=== PATIENT | female | born 1995 | race Caucasian/White ===

== ENCOUNTER 2016-07-24 17:49 | Emergency (ER) | payer OTHER ==
[2016-07-24 19:03] VITALS: BP 145/94
[2016-07-24] MEDS ORDERED: Ondansetron ODT TAB* 4 MG PO ONE (21:38)
--- NOTE | 2016-07-24 22:29 | UC ---
Catarina Ellison Alok, scribed for Marli Terry MD on 07/24/16 at 2108 . Abdominal Pain Female HPI - HPI Summary HPI Summary: 20F presents to [facility] for umbilical abd cramping on and off since today as well as vomiting roughly once a day for the last few months. Pt also notes diarrhea. There is no blood in the diarrhea. Pt has not vomited today. Pt denies vaginal discharge. Her LMP was 1 week ago. Pt takes BCP. Pt takes trintellix ( Vortioxetine) for depression for the last few months. Pt states her vomiting began only after she began her new anti-depressant medication. Pt denies SI/HI when asked directly in response to nurse's triage questions. Pt lives with her mother. Mother states she feels safe having the patient come home with her and does not feel the pt is suicidal either. Pt also admits to marijuana smoking daily to calm her nerves and feels it helps her. Pt is seeing a wall man and is trying to diet. - History of Current Complaint Chief Complaint: UCAbdominalPain Stated Complaint: ABD PAIN WITH CRAMPING Time Seen by Provider: 07/24/16 20:24 Hx Obtained From: Patient, Family/Ton Container Filler - mother Hx Last Menstrual Period: 07/17/16 ?: No Onset/Duration: Lasting Hours - abd pain, Lasting Weeks - vomiting, Worse Since - today Timing: Constant Severity Initially: Moderate Severity Currently: Moderate Pain Intensity: 3 Pain Scale Used: 0-10 Numeric Location: Discrete At: RLQ, Discrete At: LLQ Radiates: No Character: Cramping Aggravating Factor(s): Nothing Alleviating Factor(s): Nothing Associated Signs and Symptoms: Positive: Nausea, Vomiting, Diarrhea. Negative: Fever, Blood in Stool, Urinary Symptoms, Vaginal Bleeding, Vaginal Discharge Allergies/Adverse Reactions: Allergies Allergy/AdvReac Type Severity Reaction Status Date / Time No Known Allergies Allergy Verified 07/24/16 18:53 Home Medications: Home Medications Cyanocobalamin TAB* [Vitamin B12 TAB*] 1 tab PO DAILY 07/24/16 [History Confirmed 07/24/16] Norgestimate-Ethinyl Estradiol [Tri-Linyah 0.18/0.215/0.25 mg-35 Mcg] 1 tab PO DAILY 07/24/16 [History Confirmed 07/24/16] Vortioxetine HBr [Trintellix] 20 mg PO DAILY 07/24/16 [History Confirmed ] PMH/Surg Hx/FS Hx/Imm Hx Previously Healthy: No Psychological History: Depression - Surgical History Surgical History: None - Family History Known Family History: Positive: Hypertension - Social History Occupation: Student Lives: With Family Alcohol Use: Rare Substance Use Type: Marijuana Substance Use Comment - Amount & Last Used: daily Smoking Status (MU): Never Smoked Tobacco Review of Systems Constitutional: Negative Eyes: Negative ENT: Negative Respiratory: Negative Gastrointestinal: Abdominal Pain, Vomiting, Diarrhea Musculoskeletal: Negative Neurological: Negative Psychological: Negative All Other Systems Reviewed And Are Negative: Yes Physical Exam Triage Information Reviewed: Yes Appearance: Well-Appearing, Well-Nourished, Pain Distress Vital Signs: Initial Vital Signs Temp 99.2 F 07/24/16 18:55 Pulse 102 07/24/16 18:55 Resp 16 07/24/16 18:55 BP 145/94 07/24/16 18:55 Pulse Ox 98 07/24/16 18:55 Vital Signs Reviewed: Yes Eyes: Positive: Conjunctiva Clear ENT Exam: Normal Neck: Positive: Supple Respiratory: Positive: Lungs clear, Normal breath sounds, No respiratory distress Cardiovascular: Positive: RRR, No Murmur, Pulses Normal, Brisk Capillary Refill Abdomen Description: Positive: No Organomegaly, Soft, Other: - mild diffuse tenderness. Negative: Bruit, CVA Tenderness (R), CVA Tenderness (L), Distended , Guarding, Hernia @, Hepatomegaly, McBurney's Point Tenderness, Peritoneal Signs, Pulsatile Mass, Splenomegaly Bowel Sounds: Positive: Present Musculoskeletal: Positive: Strength Intact, ROM Intact Neurological: Positive: Alert, Muscle Tone Normal Psychological Exam: Normal Skin Exam: Normal Diagnostics - Laboratory Diagnostic Studies Completed/Ordered: UA Test # 1127- Color: Dark Yellow, Clarity: Cloudy, GLU: Negative, SERA: 1+, KET: 2+, S.025, BLO: Trace-Intact, pH: 6.5, PRO: 1+, URO: 1.0 E.U./dL, NIT: Negative, PARK: Negative, hCG: Negative. Re-Evaluation - Re-Evaluation First Eval Re-Evaluation Time: 21:38 Change: Worse Comment: Pt vomited yellow bile Second Eval Re-Evaluation Time: 22:15 - improved after zofran Change: Improved Abd Pain Female Course/Dx - Course Course Of Treatment: Pt medications reviewed at visit. High BP noted. Pt presents with vomiting and abd pain. Given zofran with relief. Not a surgical abdomen. UA Test # 1127- Color: Dark Yellow, Clarity: Cloudy, GLU: Negative, SERA: 1+, KET: 2+, S.025, BLO: Trace-Intact, pH: 6.5, PRO: 1+, URO: 1.0 E.U./ dL, NIT: Negative, PARK: Negative, hCG: Negative. - Differential Dx/Diagnosis Differential Diagnosis: Appendicitis, Diverticulitis, Gall Bladder Disease, Hepatitis, Irritable Bowel Syndrome, Pancreatitis, Peptic Ulcer Disease, Urinary Tract Infection Provider Diagnoses: Vomiting. Abdominal pain. Elevated BP without dx of HTN. Discharge - Discharge Plan Condition: Stable Disposition: HOME Prescriptions: Ondansetron ODT TAB* [Zofran 4 MG Odt TAB*] 4 mg PO Q8H PRN #12 tab.odt PRN Reason: Nausea Ranitidine TAB (NF) [Zantac TAB (NF)] 300 mg PO BEDTIME #30 tab Patient Education Materials: Ranitidine (By mouth), Ondansetron (By mouth), Acute Nausea and Vomiting (ED), Abdominal Pain (ED) Referrals: Tatyana June, PLUG MAKER [Primary Care Provider] - 2 Days Additional Instructions: Dr. Terry discussed the differential diagnosis of your abdominal pain which includes gallstones and gallbladder disease, gastritis or beginning stages of an ulcer, GERD, gluten intolerance, medication side effects as the top diagnoses , however hepatitis, pancreatitis, irritable bowel disease any many other diseases can give vomiting and abdominal pain as well. Dr. Terry gave you one dose of ondansetron (zofran) for nausea. She also recommends that you try ranitidine (H2 teodoro) in a different category of drugs from omeprazole (which is a proton pump inhibitor). You do not have a surgical abdomen at this time. Dr. Terry recommends that you see Tatyana June and get further work up of your abdominal pain including probable gallbladder ultrasound and possible upper endoscopy. She can guide you through that work up. Your urine test showed ketones, and mild dehydration, so you need to eat and drink more. There was no sign of infection. If you have continued vomiting or worsening abdominal pain you will need to go to the emergency room. The documentation as recorded by the Catarina more Alok accurately reflects the service I personally performed and the decisions made by me, Marli Terry MD.
== END 2016-07-24 22:20 | disposition home or self-care (01) ==
LOC: UCEAST 17:49
DX: R11.10 Vomiting, unspecified (principal); R10.9 Unspecified abdominal pain; R03.0 Elevated blood-pressure reading, without diagnosis of hypertension; F32.9 Major depressive disorder, single episode, unspecified
CPT/HCPCS: 81003; 84702; 99212; A9270-GY; G0463

== ENCOUNTER 2016-07-25 23:19 | Emergency (ER) | payer OTHER ==
[2016-07-26 01:26] LABS: Hematocrit 39 % (35-47); Mean Corpuscular HGB Conc 33 g/dl (31-36); Mean Corpuscular Hemoglobin 27 pg (27-31); Mean Corpuscular Volume 82 fL (80-97); Mean Platelet Volume 9 um3 (7.4-10.4); Red Cell Distribution Width 14 % (10.5-15)
[2016-07-26 01:31] LABS: Urine Bacteria Absent (Absent); Urine Bilirubin Negative (Negative); Urine Glucose Negative (Negative); Urine Nitrite Negative (Negative)
[2016-07-26 01:41] LABS: ALT 13 U/L (7-52); AST 14 U/L (13-39); Albumin 3.8 g/dL (3.2-5.2); Alkaline Phosphatase 69 U/L (34-104); Anion Gap 6 mmol/L (2-11); Blood Urea Nitrogen 6 mg/dL (6-24); CO2 Carbon Dioxide 27 mmol/L (22-32); Calcium 9.1 mg/dL (8.6-10.3); Chloride 101 mmol/L (101-111); EGFR African American 124.3 (>60); EGFR Non-African American 96.6 (>60); Globulin 3.2 g/dL (2-4); Glucose 111 mg/dL (70-100); Lipase 15 U/L (11.0-82.0); Potassium 3.5 mmol/L (3.5-5.0); Sodium 134 mmol/L (133-145)
--- NOTE | 2016-07-26 02:05 | ED ---
David Ellison Rebecca, scribed for Tang Joseph on 07/25/16 at 2350 . HPI Febrile Illness - HPI Summary HPI Summary: Pt is a 20 y/o F who presents to ED c/o febrile illness. Fever started suddenly today and was advised by Urgent Care to be evaluated by the ED if her fever elevated beyond 100. Reports when taken ARMHOLE BASTER JUMPBASTING at home, her temperature was 102.5. Sx aggravated and alleviated by nothing. Additionally c/o V/D, for which she was evaluated by Urgent Care last night with a Dx of GERD. Notes intermittent suprapubic abdominal pain that is currently not present. Denies CP, SOB, sore throat. Has an appt with her PCP tomorrow. - History of Current Complaint Chief Complaint: EDFever Time Seen by Provider: 07/25/16 23:47 Hx Obtained From: Patient Onset/Duration: Started Hours Ago - Started today, Still Present Temperature: 102.5 F - ARMHOLE BASTER JUMPBASTING Current Severity: None Pain Intensity: 0 Pain Scale Used: 0-10 Numeric Aggravating Factors: Nothing Alleviating Factors: Nothing Associated Signs and Symptoms: Diarrhea, Vomiting, Other: - Intermittent abd pain (currently resolved) - Allergy/Home Medications Allergies/Adverse Reactions: Allergies Allergy/AdvReac Type Severity Reaction Status Date / Time No Known Allergies Allergy Verified 07/25/16 23:25 PMH/Surg Hx/FS Hx/Imm Hx Endocrine/Hematology History: Denies: Hx Diabetes Cardiovascular History: Denies: Hx Hypertension Psychiatric History: Reports: Hx Anxiety, Hx Depression Denies: Hx Eating Disorder, Hx of Violent Episodes Against Others Infectious Disease History: No Infectious Disease History: Denies: Traveled Outside the [place] in Last 30 Days - Family History Known Family History: Positive: Hypertension - Social History Alcohol Use: Rare Substance Use Type: Reports: Marijuana Substance Use Comment - Amount & Last Used: daily Smoking Status (MU): Never Smoked Tobacco Review of Systems Positive: Fever - 102.5 ARMHOLE BASTER JUMPBASTING, at home Negative: Sore Throat Negative: Chest Pain Negative: Shortness Of Breath Positive: Abdominal Pain - intermittent (resolved), Vomiting, Nausea All Other Systems Reviewed And Are Negative: Yes Physical Exam - Summary Physical Exam Summary: Appearance: Well appearing, no pain distress Skin: warm, dry, reflects adequate perfusion Head/face: normal Eyes: EOMI, FER ENT: normal Neck: supple, nontender Resp: CTA, breath sounds present Cardio: RRR, pulses symm Abd: nontender, soft Bowel: present Musc: normal, strength/ROM intact Neuro: normal, sensory motor intact, A&Ox3 Triage Information Reviewed: Yes Vital Signs On Initial Exam: Initial Vitals Temp Pulse Resp BP Pulse Ox 98.8 F 118 18 144/91 98 07/25/16 23:21 07/25/16 23:21 07/25/16 23:21 07/25/16 23:21 07/25/16 23:21 Vital Signs Reviewed: Yes Diagnostics - Vital Signs Vital Signs Temp Pulse Resp BP Pulse Ox 07/25/16 23:21 98.8 F 118 18 144/91 98 - Laboratory Result Diagrams: 07/26/16 01:13 07/26/16 01:13 Lab Statement: Any lab studies that have been ordered have been reviewed, and results considered in the medical decision making process. - Radiology CXR Xray Interpretation: No Acute Changes Radiology Interpretation Completed By: ED Physician Course/Dx - Course Assessment/Plan: Pt is a 20 y/o F with a CC of febrile illness, reporting she was advise [facility] last night to be evaluated by the ED if her fever went over 100, which she reports was 102.5 ARMHOLE BASTER JUMPBASTING at home. Additionally c/o V/D and intermittent abd pain (currently resolved). CXR, labs, UA reveal no acute findings. Currently denies any abdominal pain. Advised to return in 24 hours if abdominal pain wrosens to r/o appy. Pt will be D/C to home with Dx of fever and nonspecific abdominal pain. - Diagnoses Provider Diagnoses: Fever, Nonspecific abdominal pain Discharge - Discharge Plan Condition: Stable Disposition: HOME Patient Education Materials: Fever in Adults (ED), Abdominal Pain (ED) Referrals: Tatyana June, ASSISTANT TO THE DIRECTOR [Primary Care Provider] - 3 Days (Follow up within the next 3 days. ) The documentation as recorded by the David more Rebecca accurately reflects the service I personally performed and the decisions made by Jake causey Emmanuel.
[2016-07-26 02:09] VITALS: BP 138/80
--- NOTE | 2016-07-26 07:55 | RAD ---
INDICATION: Fever. COMPARISON: There are no prior studies available for comparison. TECHNIQUE: Dual-energy PA and lateral views of the chest were obtained. FINDINGS: The heart is within normal limits in size. Mediastinal and hilar contours appear within normal limits. The lungs are clear. No pleural effusion is present. IMPRESSION: NO EVIDENCE FOR ACTIVE CARDIOPULMONARY DISEASE.
== END 2016-07-26 02:07 | disposition home or self-care (01) ==
LOC: ED 23:19
DX: R50.9 Fever, unspecified (principal); R10.84 Generalized abdominal pain; R19.7 Diarrhea, unspecified; R11.10 Vomiting, unspecified
CPT/HCPCS: 36415; 71020; 80053; 81003; 81015; 83690; 84702; 85025; 87086; 99282

== ENCOUNTER 2016-12-10 16:28 | Emergency (ER) | payer OTHER ==
[2016-12-10 16:38] VITALS: BP 124/76
--- NOTE | 2016-12-10 17:26 | UC ---
Complaint Female HPI - HPI Summary HPI Summary: ONE WEEK URGENCY URINARY FREQUENCY AND DISCOMFORT. NO FEVER. NO ABDOMINAL PAIN. NO BACK PAIN. - History Of Current Complaint Chief Complaint: UCGU Stated Complaint: UTI Time Seen by Provider: 12/10/16 16:32 Hx Obtained From: Patient Hx Last Menstrual Period: just finished Onset/Duration: Gradual Onset, Lasting Weeks, Still Present Timing: Intermittent Severity Initially: Mild Severity Currently: Moderate Character: Dull Aggravating Factor(s): Urination Associated Signs And Symptoms: Positive: Vaginal Discharge. Negative: Fever, Back Pain - Risk Factors Ectopic Risk Factor: Negative Ovarian Torsion Risk Factor: Negative - Allergies/Home Medications Allergies/Adverse Reactions: Allergies Allergy/AdvReac Type Severity Reaction Status Date / Time No Known Allergies Allergy Verified 12/10/16 16:38 PMH/Surg Hx/FS Hx/Imm Hx - Surgical History Surgical History: None - Family History Known Family History: Positive: Hypertension, Renal Disease - FATHER KIDNEY STONES - Social History Occupation: Employed Part-time, Student Lives: With Family Alcohol Use: Rare Substance Use Type: Marijuana Substance Use Comment - Amount & Last Used: daily Smoking Status (MU): Never Smoked Tobacco Review of Systems Constitutional: Negative Skin: Negative Eyes: Negative ENT: Negative Respiratory: Negative Cardiovascular: Negative Gastrointestinal: Negative Genitourinary: Dysuria, Frequency, Urgency Motor: Negative Neurovascular: Negative Musculoskeletal: Negative Neurological: Negative Psychological: Negative Is Patient Immunocompromised?: No All Other Systems Reviewed And Are Negative: Yes Physical Exam Triage Information Reviewed: Yes Appearance: Well-Appearing, No Pain Distress, Well-Nourished Vital Signs: Initial Vital Signs Temp 97.8 F 12/10/16 16:34 Pulse 99 12/10/16 16:34 Resp 20 12/10/16 16:34 BP 124/76 12/10/16 16:34 Pulse Ox 98 12/10/16 16:34 Vital Signs Reviewed: Yes Eye Exam: Normal ENT Exam: Normal ENT: Positive: Normal ENT inspection, Hearing grossly normal, Pharynx normal, TMs normal Dental Exam: Normal Neck exam: Normal Neck: Positive: Supple, Nontender, No Lymphadenopathy Respiratory Exam: Normal Respiratory: Positive: Chest non-tender, Lungs clear, Normal breath sounds, No respiratory distress, No accessory muscle use Cardiovascular Exam: Normal Cardiovascular: Positive: RRR, No Murmur, Pulses Normal, Brisk Capillary Refill Abdominal Exam: Normal Abdomen Description: Positive: Nontender, No Organomegaly, Soft. Negative: CVA Tenderness (R), CVA Tenderness (L) Musculoskeletal Exam: Normal Neurological Exam: Normal Psychological Exam: Normal Skin Exam: Normal Complaint Female Dx - Differential Dx/Diagnosis Differential Diagnosis/HQI/PQRI: Urinary Tract Infection Provider Diagnoses: URINARY TRACT INFECTION Discharge - Discharge Plan Condition: Stable Disposition: HOME Prescriptions: Phenazopyridine TAB* [Pyridium 100 mg TAB*] 100 mg PO TID PRN #15 tab PRN Reason: Pain Sulfamethox/Trimethoprim DS* [Bactrim DS 800/160 TAB*] 1 tab PO BID #10 tab Patient Education Materials: Urinary Tract Infection in Women (ED) Referrals: Tatyana June NP [Primary Care Provider] -
== END 2016-12-10 17:29 | disposition home or self-care (01) ==
LOC: UCEAST 16:28
DX: N39.0 Urinary tract infection, site not specified (principal); Z32.02 Encounter for pregnancy test, result negative
CPT/HCPCS: 81003; 84702; 87086; 99212; G0463

== ENCOUNTER 2017-04-18 21:49 | Emergency (ER) | payer OTHER ==
--- NOTE | 2017-04-18 22:55 | ED ---
Respiratory - HPI Summary HPI Summary: 21-year-old female presents with what she describes as intermittent shortness of breath the past couple days. States she is able to breathe normally but when she takes a deep breath she feels like she is unable to get the air in. She points to trachea area when says the air gets caught in that area. She denies any chest pain. She's never had this before. She has history of anxiety. She has not taken anything for anxiety. She states this started with some burning sensation in her chest couple days ago but that has since resolved. She states she does have a history of GERD. She denies any cough. She denies any new medications. She denies taking anything new or potential allergic reaction. She denies any sinus congestion. She denies a sore throat. She denies any pain. she denies any bowel pain. She denies any nausea or vomiting. She is on control. She denies any family history of blood clots. She is nonsmoker. She denies any recent surgeries or travel. She denies any pain or swelling in her calf muscles. Patient states she believes anxiety is causing her symptoms. Only medical conditions his anxiety and depression. She normally takes Xanax for anxiety but has not taken any of them. - History of Current Complaint Chief Complaint: EDUpperRespComplaint Stated Complaint: SOB Time Seen by Provider: 04/18/17 22:40 Pain Intensity: 0 - Allergy/Home Medications Allergies/Adverse Reactions: Allergies Allergy/AdvReac Type Severity Reaction Status Date / Time No Known Allergies Allergy Verified 12/10/16 16:38 PMH/Surg Hx/FS Hx/Imm Hx Endocrine/Hematology History: Denies: Hx Diabetes, Hx Thyroid Disease Cardiovascular History: Denies: Hx Hypertension Respiratory History: Denies: Hx Asthma, Hx Chronic Obstructive Pulmonary Disease (COPD) GI History: Denies: Hx Ulcer Psychiatric History: Reports: Hx Anxiety, Hx Depression Denies: Hx Eating Disorder, Hx of Violent Episodes Against Others Infectious Disease History: No Infectious Disease History: Denies: Hx Clostridium Difficile, Hx Hepatitis, Hx Human Immunodeficiency Virus (HIV), Hx of Known/Suspected MRSA, Hx Shingles, Hx Tuberculosis, Hx Known/ Suspected VRE, Hx Known/Suspected VRSA, History Other Infectious Disease, Traveled Outside the [place] in Last 30 Days - Family History Known Family History: Positive: Hypertension, Renal Disease - FATHER KIDNEY STONES Negative: Blood Disorder - Social History Alcohol Use: Occasionally Substance Use Type: Reports: None Substance Use Comment - Amount & Last Used: daily Hx Tobacco Use: No Smoking Status (MU): Never Smoked Tobacco Review of Systems Negative: Chest Pain Positive: Shortness Of Breath. Negative: Cough All Other Systems Reviewed And Are Negative: Yes Physical Exam Triage Information Reviewed: Yes Vital Signs On Initial Exam: Initial Vitals Temp Pulse Resp BP Pulse Ox 99 F 94 16 154/89 100 04/18/17 21:51 04/18/17 21:51 04/18/17 21:51 04/18/17 21:51 04/18/17 21:51 Vital Signs Reviewed: Yes Appearance: Positive: Well-Appearing Skin: Positive: Warm, Dry Head/Face: Positive: Normal Head/Face Inspection Eyes: Positive: Normal, EOMI, FRE, Conjunctiva Clear ENT: Positive: Normal ENT inspection, Pharynx normal, TMs normal Neck: Positive: Supple, Nontender, No Lymphadenopathy Respiratory/Lung Sounds: Positive: Clear to Auscultation, Breath Sounds Present Cardiovascular: Positive: Normal, RRR Abdomen Description: Positive: Nontender, Soft Bowel Sounds: Positive: Present Musculoskeletal: Positive: Normal Neurological: Positive: Normal Psychiatric: Positive: Normal Diagnostics - Vital Signs Vital Signs Temp Pulse Resp BP Pulse Ox 04/18/17 21:51 99 F 94 16 154/89 100 - Laboratory Lab Statement: Any lab studies that have been ordered have been reviewed, and results considered in the medical decision making process. Disposition - Course Course Of Treatment: 21-year-old female presents with what she describes as intermittent shortness of breath the past couple days. States she is able to breathe normally when she takes a deep breath she feels like she is unable to get the air in. She points to trachea area when says the air gets caught in that area. She denies any chest pain. She's never had this before. She has history of anxiety. She has not taken anything for anxiety. She states this started with some burning sensation in her chest couple days ago but that has since resolved. She states she does have a history of GERD. She denies any cough. She denies any new medications. She denies taking anything new or potential allergic reaction. She denies any sinus congestion. She denies a sore throat. She denies any pain. she denies any bowel pain. She denies any nausea or vomiting. She is on control. She denies any family history of blood clots. She is nonsmoker. She denies any recent surgeries or travel. She denies any pain or swelling in her calf muscles. Patient states she believes anxiety is causing her symptoms. On exam lungs clear to auscultation. Pharynx normal. Abdomen soft nontender. Vital stable. Discussed the only thing = at risk for is PE but symptoms not consistent for PE as is not a true SOB, vitals stable and no chest pain so do not think this is such. likely anxiety or could be GERD. will have try xanax for symptoms. told if anything changes to return to ED. patient understand and agrees with plan. - Differential Dx - Cardiopulmonary Differential Diagnoses - Cardiopulmonary: Lower Resp Infection, Pulmonary Embolism, Other - anxiety - Diagnoses Provider Diagnoses: Shortness of breath Discharge - Discharge Plan Condition: Good Disposition: HOME Referrals: Tatyana June NP [Primary Care Provider] - Additional Instructions: If develop chest pain or consistent shortness of breathe return to the ED Follow up with primary within 5 days Return to ED if develop any new or worsening symptoms
[2017-04-18 23:04] VITALS: BP 142/97
== END 2017-04-18 23:01 | disposition home or self-care (01) ==
LOC: ED 21:49
DX: R06.02 Shortness of breath (principal); Z87.19 Personal history of other diseases of the digestive system
CPT/HCPCS: 99282

== ENCOUNTER 2017-09-23 22:22 | Emergency (ER) | payer OTHER ==
[2017-09-24] MEDS ORDERED: NS 0.9% 1000 ML* 1,000 ML IV ONE (00:16)
[2017-09-24 01:04] LABS: ABS Basophils 0.1 10^3/ul (0-0.2); ABS Eosinophils 0.1 10^3/ul (0-0.6); ABS Lymphocytes 3.2 10^3/ul (1.0-4.8); ABS Monocytes 0.7 10^3/ul (0-0.8); ABS Neutrophils 10.7 10^3/ul (1.5-7.7); ABS Nucleated RBC 0 10^3/ul; Eosinophil % 0.6 % (0-6); Hematocrit 37 % (35-47); Hemoglobin 12.4 g/dl (12.0-16.0); Lymphocyte % 21.8 % (25-47); Mean Corpuscular HGB Conc 34 g/dl (31-36); Mean Corpuscular Hemoglobin 29 pg (27-31); Mean Corpuscular Volume 85 fL (80-97); Mean Platelet Volume 8.2 um3 (7.4-10.4); Nucleated Red Blood Cells % 0; Platelet Count 274 10^3/ul (150-450); Red Blood Count 4.31 10^6/ul (4.00-5.40); Red Cell Distribution Width 14 % (10.5-15); White Blood Count 14.8 10^3/ul (3.5-10.8)
[2017-09-24 01:20] LABS: EGFR Non-African American 122.8 (>60)
[2017-09-24] MEDS ORDERED: Iohexol 300* (CONTRAST) 10 ML SDV IV ONE ×2 (01:46→02:14)
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
[2017-09-24 03:42] VITALS: BP 118/70
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
== END 2017-09-24 03:35 | disposition home or self-care (01) ==
LOC: ED 22:22
DX: R10.32 Left lower quadrant pain (principal); M79.645 Pain in left finger(s); S10.91XA Abrasion of unspecified part of neck, initial encounter; S20.311A Abrasion of right front wall of thorax, initial encounter; S30.811A Abrasion of abdominal wall, initial encounter; V47.5XXA Car driver injured in collision with fixed or stationary object in traffic accident, initial encounter; Y93.9 Activity, unspecified; Y92.9 Unspecified place or not applicable
CPT/HCPCS: 36415; 71260; 74177; 80053; 85025; 96360; 99282; Q9967